=== PATIENT | female | born 1995 | race Caucasian/White ===

== ENCOUNTER 2017-02-25 10:59 | Inpatient (IN) | payer OTHER ==
[~2017-02-25] VITALS: Ht 149.9 cm; Wt 57.2 kg
[~2017-02-25 10:59] MED LIST: PRENATAL CAPLE1 EACH
== END 2017-02-27 13:20 | disposition home or self-care (01) | DRG 775 ==
LOC: LDR 10:59 → OB/GYN 10:59
PROC: 10E0XZZ Delivery of Products of Conception, External Approach (ICD-10-PCS; principal; 2017-02-25)
PROC: 0KQM0ZZ Repair Perineum Muscle, Open Approach (ICD-10-PCS; 2017-02-25)
PROC: 3E0P7VZ Introduction of Hormone into Female Reproductive, Via Natural or Artificial Opening (ICD-10-PCS; 2017-02-25)
PROC: 4A033R1 Measurement of Arterial Saturation, Peripheral, Percutaneous Approach (ICD-10-PCS; 2017-02-25)
DX: O70.1 Second degree perineal laceration during delivery (principal); Z37.0 Single live birth; O42.92 Full-term premature rupture of membranes, unspecified as to length of time between rupture and onset of labor; Z3A.38 38 weeks gestation of pregnancy